=== PATIENT | male | born 1965 | race Caucasian/White ===

== ENCOUNTER 2020-12-19 13:42 | Inpatient (IN) | payer BC ==
[~2020-12-19] VITALS: Ht 177.8 cm; Wt 82.6 kg
[2020-12-19 14:51] VITALS: BP 146/85
[2020-12-19 15:56] LABS: HEMATOCRIT 27.7 % (42.0-52.0); HEMOGLOBIN 9.2 gm/dL (14.0-18.0); MCH 28.5 pg (26.0-34.0); MCHC 33.4 g/dL (28.0-37.0); MCV 85.4 fL (80.0-100.0); RBC 3.25 mil/uL (4.50-6.00); WBC 7.8 thou/uL (4.0-11.0)
[2020-12-19 16:04] LABS: CALCIUM 9.3 mg/dL (8.5-10.1); CREATININE 1.6 mg/dL (0.7-1.3); POTASSIUM 3.7 mmol/L (3.5-5.1)
[2020-12-19 16:08] LABS: INR 4.2; PROTIME 43.5 Seconds (9.3-11.4)
[2020-12-19 16:59] LABS: % SATURATION 14 % (20-39); IRON 32 ug/dL (65-175); TIBC 221 ug/dL (250-450)
[2020-12-19] MEDS ORDERED: TYLENOL325 M1 PO (17:01)
[2020-12-19] MEDS ORDERED: LIPITOR40 MG PO (17:02)
[2020-12-19] MEDS ORDERED: MINTOX MAXIMUM355 ML PO (17:02)
[2020-12-19] MEDS ORDERED: CALCIUM500 MG PO (17:03)
[2020-12-19] MEDS ORDERED: DIGOX125 MCG PO (17:03)
[2020-12-19] MEDS ORDERED: FAMOTIDINE 20 M20 MG PO (17:04)
[2020-12-19] MEDS ORDERED: CARDIZEM SR 60M60 MG PO (17:04)
[2020-12-19] MEDS ORDERED: NEURONTIN 300M300 M2 PO (17:05)
[2020-12-19] MEDS ORDERED: FLORINEF ACETA0.1 MG PO (17:05)
[2020-12-19] MEDS ORDERED: FUROSEMIDE 40 M40 MG PO (17:05)
[2020-12-19] MEDS ORDERED: MAGNESIUM250 M1 PO (17:07)
[2020-12-19] MEDS ORDERED: HYDROXYZINE HCL25 M2 PO (17:07)
[2020-12-19] MEDS ORDERED: MECLIZINE HCL25 M1 PO (17:08)
[2020-12-19] MEDS ORDERED: MENTHOL-CAMPHO120 GM TOP (17:09)
[2020-12-19] MEDS ORDERED: MIDODRINE HCL 55 M1 PO (17:09)
[2020-12-19] MEDS ORDERED: POLYOX WSR-3011 GM MC (17:10)
[2020-12-19] MEDS ORDERED: SENNA-DOCUSATE1 EAC1 PO (17:10)
[2020-12-19] MEDS ORDERED: SERTRALINE HCL100 MG PO (17:11)
[2020-12-19] MEDS ORDERED: EUCERIN CREME57 GM TOP (17:11)
[2020-12-19] MEDS ORDERED: JANTOVEN5 MG PO (17:12)
--- NOTE | 2020-12-19 17:19 | NUR ---
ASSUMED PT CARE AT APPROXIMATELY 1530 FROM A DIRECT ADMIT, PTS VSS, PT DENIES PAIN AT THIS TIME. ASSESSMENT AND ADMISSION COMPLETED. WILL CONTINUE TO MONITOR PT
[2020-12-19 20:12] VITALS: BP 127/88
[2020-12-20 00:57] VITALS: BP 127/89
[2020-12-20 04:15] VITALS: BP 129/94
[2020-12-20 04:47] LABS: HEMOGLOBIN 7.9 gm/dL (14.0-18.0); MCH 28.2 pg (26.0-34.0); MCV 85.5 fL (80.0-100.0); RBC 2.8 mil/uL (4.50-6.00); RDW 15.1 % (10.5-14.5)
[2020-12-20 05:05] LABS: INR 1.9; PROTIME 19.4 Seconds (9.3-11.4)
--- NOTE | 2020-12-20 05:26 | NUR ---
assumed pt care at 1900, pt is awake, alert and orientedx4, sr on the monitor, asessments as charted, denies pain or sob, remains on 4l nasal canula, o2sats stable, other vss, no acute distress noted, will continue to monitor and passon report
--- NOTE | 2020-12-20 07:12 | NUR ---
ASSUMED PT CARE AT THIS TIME. PT SLEEPING. ASSESSMENT PERFORMED. WILL CONTINUE TO MONITOR.
[2020-12-20 07:50] VITALS: BP 131/96
[2020-12-20 08:10] LABS: CREATININE 1.6 mg/dL (0.7-1.3); POTASSIUM 3.7 mmol/L (3.5-5.1)
--- NOTE | 2020-12-20 09:42 | EKG ---
[place] [address] [employer] [address] [facility] [place] [address] ELECTROCARDIOGRAM REPORT Name: RACHAEL BELL Room #: 214-P ADM IN M.R.#: [id number] Admission: 12/19/20 Attend Phys: Chris Perkins MD, Discharge: Date of : 65 Report #: [id number] 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 : 1965 Requested By: Gertrudis Dixon Order Number: [id number] MD: Miguel Angel Osborn Measurements Intervals [place] Rate: 72 P: 20 IN: 191 QRS: 36 QRSD: 89 T: 18 QT: 426 QTc: 467 Interpretive Statements Sinus rhythm Probable left atrial enlargement Abnormal R-wave progression, late transition Borderline T abnormalities, anterior leads Baseline wander in lead(s) V1 No previous ECG available for comparison Electronically Signed On 12-20-2020 9:42:13 SOFTWARE QUALITY ASSURANCE ENGINEER by Miguel Angel Osborn [email or web address] <ELECTRONICALLY SIGNED> By: Miguel Angel Osborn MD, [facility] 12/20/20 0942 6 6 Miguel Angel Osborn MD, [facility] /EPI
--- NOTE | 2020-12-20 10:24 | NUR ---
WOUND CONSULT; THE PATIENT REPORTS A 3 MONTH PERIOD OF HOSPITALIZATIONS. HE INCURRED A COCCYX PRESSURE WOUND AND IT IS ALMOST HEALED ALTHOUGH THE AREA HAS RAISED AREAS OF HYPER-COLLAGEN SKIN CHANGES TO THE AREA THAT MAY BE PERMINENT TO AN EXTENT. NO S/S OF INFECTION. THE PATIENT CAN TURN HIMSELF WITHOUT ASSISTANCE. THE PATIENT IS A GOOD HISTORIAN. RECOMMEDNATIONS; ZGUARD BID/PRN LOW AIR LOSS PUMP APPLIED TO THE BED TODAY. DISCUSSED WITH DIAZ
--- NOTE | 2020-12-20 11:03 | NUR ---
Case opened to follow for dc planning. Pt admitted from [facility] via Cardiology office where he had been sent for an ECHO. The pt has been rehabing at [facility] for approx one month. He had covid in August 2020 with lengthy hospital course including a stroke. He went to [facility] in [place], [place] for vent weaning/trach/peg and progressed to acute rehab. He has not needed to use his peg for the past month. He is now on 4liters of O2 per ks. He is working with therapy and his goal is to return home with his . [facility] updated and they are anticipating they can readmit when medically stable. Pt to have OSCAR today and cardiac cath tomorrow. GI consult is also in progress due to anemia. PT/OT evals are pending. DC internet media planner to fax clinical updated to [facility]. Dc plan is to go back to [facility] for continued rehab.
--- NOTE | 2020-12-20 11:10 | NUR ---
PT CAME FROM [facility] FAXED CLINICAL UPDATE RECEIVED CONFIRMATION AND SPOKE WITH CHANO IN ADM WILL KEEP FACILITY UPDATED.
[2020-12-20 12:00] VITALS: BP 121/78
[2020-12-20 15:40] VITALS: BP 124/87
[2020-12-20 20:14] VITALS: BP 142/81
[2020-12-21] VITALS (12 sets, daily range): BP systolic 110–1136; BP diastolic 71–97
[2020-12-21 04:00] LABS: PROTIME 12.9 Seconds (9.3-11.4)
[2020-12-21 04:03] LABS: CALCIUM 8.8 mg/dL (8.5-10.1); CREATININE 1.4 mg/dL (0.7-1.3); POTASSIUM 3.5 mmol/L (3.5-5.1)
[2020-12-21 04:07] LABS: INR 1.2
[2020-12-21 04:11] LABS: HEMATOCRIT 23.6 % (42.0-52.0); HEMOGLOBIN 7.8 gm/dL (14.0-18.0); MCH 28.1 pg (26.0-34.0); MCHC 32.9 g/dL (28.0-37.0); MCV 85.4 fL (80.0-100.0); RBC 2.77 mil/uL (4.50-6.00); WBC 6.9 thou/uL (4.0-11.0)
--- NOTE | 2020-12-21 07:55 | NUR ---
assumed care at 1900, alert and oriented, sr on the monitor, asessments as charted, pain and tingling to the left lower extremity, neurontin given, pt sleeping this am, remained npo after midnight for possible cath this am, no distress noted, passed on report
--- NOTE | 2020-12-21 14:05 | NUR ---
Pt still desating with activity. Awaiting r&d lab technician this afternoon. Dc plan discussed with the care team and pt/. All parties anticipating dc back to [facility] on Thursday. They are working on ins auth. They will need weekend therapy notes faxed early Thursday.
[2020-12-22] VITALS (8 sets, daily range): BP systolic 116–149; BP diastolic 77–90
[2020-12-22 04:37] LABS: HEMATOCRIT 22.6 % (42.0-52.0); HEMOGLOBIN 7.5 gm/dL (14.0-18.0); MCH 28.8 pg (26.0-34.0); MCHC 33.3 g/dL (28.0-37.0); MCV 86.4 fL (80.0-100.0); RBC 2.62 mil/uL (4.50-6.00); RDW 14.9 % (10.5-14.5)
[2020-12-22 04:55] LABS: CALCIUM 8.6 mg/dL (8.5-10.1); CREATININE 1.5 mg/dL (0.7-1.3); POTASSIUM 3.4 mmol/L (3.5-5.1); TOTAL BILIRUBIN 0.3 mg/dL (0.2-1.0); TOTAL PROTEIN 5.9 g/dL (6.4-8.2)
--- NOTE | 2020-12-22 11:10 | CATHLAB ---
[place] [address] INVASIVE PROCEDURE REPORT Name: RACHAEL BELL Linda Room #: 214-P ADM IN M.R.#: [id number] Admission: 12/19/20 Attend Phys: Chris Perkins MD, Discharge: Date of : 65 Report #: [id number] THIS REPORT FOR: cc: Edwin Peñaloza MD, John M. MD Mancuso, Gerald M. MD [facility] ~ APPROVED REPORT Study performed: 12/21/2020 14:31:12 Patient Details Patient Status: In-Patient Room #: The patient is a 55 year-old male Event Personnel Chris Perkins Care Aide, Sonya Linder RTR Monitor, Dejon Jones RTR ScrubDeedee Ashley RN corporate counselor Performed Art Access - R femoral artery* Steven Access - R femoral vein Right and Left Heart Cath w/or w/o Coronarie [id number] [facility] Hemostasis w/ Mynx 79422 Initial Mod Sed Same Phys/QHP Gr5y [id number] 35889 Mod Sed Same Phys/QHP Ea [id number] Procedure Narrative The Right Groin^ was infiltrated with 1% Lidocaine subcutaneous anesthesia. A Right Heart Catheterization was performed with a 7 Fr. [place]varo catheter and pressure were recorded. A PINNACLE 6FR TIF Sheath #[id number] sheath was inserted into the RFA^. Coronary angiography was performed using coronary diagnostic catheters. The right coronary system was accessed and visualized with a JR4 catheter. The left coronary system was accessed and visualized with a JL4 catheter. The left ventricle was accessed and visualized with a PIGTAIL catheter. Closure device was deployed with a Fr MYNXGRIP 6/7F #[id number]. The patient tolerated the procedure well and there were no complications associated with the procedure. There was no hematoma. Intraoperative Conscious Sedation Sedation start time: 15:54 Case end Time: 16:27 Fentanyl 100 mcg Versed 2 [place] [address] INVASIVE PROCEDURE REPORT Name: RACHAEL BELL Room #: 214-P [facility] IN ..#: [id number] Admission: 12/19/20 Attend Phys: Chris Perkins, Discharge: Date of : 65 Report #: [id number] Fluoro Time: 629.00 minutes Dose: DAP 5007.90 cGycm2 629 mGy Contrast Type and Amount: Visipaque 70 ml Hemodynamics The right atrial mean pressure is 9 mmHg. The right ventricular pressure is 39/3 mmHg. The pulmonary artery pressure is 35/14 mmHg with a mean of 22 mmHg. The mean pulmonary capillary wedge pressure is 14 mmHg. The aortic pressure is 142/78 mmHg with a mean of 103 mmHg. The left ventricular pressure is 136/8 mmHg with a mean of mmHg. The left ventricular end diastolic pressure is 28 mmHg. The cardiac output using thermo method is 6.95 L/min. The cardiac index using thermo method is 3.43 L/min/m2. Conclusion #1. Successful right heart catheterization with cardiac output by thermodilution. See above hemodynamics. #2 normal left jugular size and systolic function EF 55 to 60%. No wall motion abnormality. #3 left main large giving rise to LAD and circumflex widely patent. #4 LAD with mild disease extends to the apex a type I LAD. #5 a small ramus intermedius has mild disease. #6 a large but nondominant circumflex system is intact with mild irregularity #7 dominant right coronary artery mildly diseased giving rise to a PDA which extends to the inferior apex. Recommendations and plan: Continue aggressive risk factor modification. Gentle diuresis. No indication for coronary intervention. There is a component of diastolic heart failure noted on noninvasive imaging. <ELECTRONICALLY SIGNED> By: Chris Perkins MD, FACC 12/22/20 1109 08 08 Chris Perkins MD, FACC /INF
[2020-12-23 03:42] LABS: CREATININE 1.3 mg/dL (0.7-1.3); POTASSIUM 3.4 mmol/L (3.5-5.1)
[2020-12-23 04:08] VITALS: BP 140/84
--- NOTE | 2020-12-23 05:26 | NUR ---
ASSESSMENTS CHARTED, MEDS CHARTED GIVEN. PATIENT STATING HIS GABAPENTIN IS NOT LASTING 6 HOURS SO ENDS UP IN PAIN FOR AT LEAST AN HOUR. REQUESTING THAT THE DOSE BE INCREASED OR SPREAD OUT TO COVER THE ENTIRE TIME. IN SINUS RHYTHM, ON 4 LITERS OXYGEN. USING URINAL. ABDOMENAL SITE WHERE PEG TUB WAS REMOVED WAS REINFORCED. COCCYX WAS ADDRESSED WITH ZGARD AND PATIENT REMINDED TO ALTERNATE WEIGHT ON EACH SIDE.
[2020-12-23 07:50] VITALS: BP 137/85
[2020-12-23 10:09] LABS: HEMATOCRIT 23.7 % (42.0-52.0); HEMOGLOBIN 7.7 gm/dL (14.0-18.0); MCH 28.1 pg (26.0-34.0); MCHC 32.5 g/dL (28.0-37.0); MCV 86.6 fL (80.0-100.0); RBC 2.73 mil/uL (4.50-6.00); WBC 6.7 thou/uL (4.0-11.0)
[2020-12-23 11:30] VITALS: BP 131/86
--- NOTE | 2020-12-23 11:45 | NUR ---
report received from DIAZ Yousif. care assumed.
[2020-12-23 15:55] VITALS: BP 140/83
[2020-12-23 19:53] VITALS: BP 136/97
[2020-12-24 03:31] LABS: CALCIUM 8.9 mg/dL (8.5-10.1); CREATININE 1.4 mg/dL (0.7-1.3); POTASSIUM 3.2 mmol/L (3.5-5.1)
[2020-12-24 04:39] VITALS: BP 137/85
--- NOTE | 2020-12-24 07:37 | NUR ---
ASSESSMENTS CHARTED, MEDS CHARTED GIVEN. PATIENT IS DOING BETTER ON INCREASED DOSE OF GABAPENTIN. PATIENT NEGATIVE FOR COVID. PLAN IS FOR PATIENT TO RETURN TO [facility] TODAY TO CONTINUE REHAB. FALL PRECAUTIONS IN PLACE DURING SHIFT.
[2020-12-24 07:55] VITALS: BP 130/82
[2020-12-24] MEDS ORDERED: POTASSIUM20 PO (08:39)
[2020-12-24] MEDS ORDERED: TORSEMIDE10 MG PO (08:39)
[2020-12-24] MEDS ORDERED: NEURONTIN 400M400 M2 PO (08:39)
--- NOTE | 2020-12-24 09:36 | NUR ---
FAXED [facility] ([facility]) PATIENT'S THERAPY EVALUATIONS AND NEGATIVE COVID RESULT. SUBMITTED REQUESTING INSURANCE AUTHORIZATION. WILL CONFIRM THEY RECEIVED AND INFORM PATIENT READY FOR DISCHARGE. [facility] P [phone]; FAX [phone]
--- NOTE | 2020-12-24 11:17 | NUR ---
WOUND CARE F/U; GETTING OUT OF BED TO CHAIR W/ ASSIST OF OT, ALERT, COOPERATIVE, SMALL OPEN AREA STAGE 2 COCCYX, PT C/O SOME DISCOMFORT IN AREA, ZGUARD APPLIED,NO S/S INFECTION, LOW AIR LOSS PUMP REMAINS ON BED RECOMMENDATIONS; CONT CURRENT POC OF ZGUARD BID AND PRN, TURN/OFF LOADING WHEN IN BED, CONT LOW AIR LOSS PUMP TO BED SOLAR INSTALLER AWARE
[2020-12-24 11:50] VITALS: BP 118/88
--- NOTE | 2020-12-24 13:54 | NUR ---
K IS 3.2 THIS AM. CARDIOLOGY AWARE AND INCREASED HIS DOSE TODAY FROM 20 MEQ TO 40 MEQ PO.
--- NOTE | 2020-12-24 14:21 | NUR ---
Spoke with therapy who reports patient would benefit from continued therapy. DC vacation planner faxed clinical information, requested auth. FREDDY reports they have submitted for auth. Updated patient and .
[2020-12-24 17:05] VITALS: BP 133/79
--- NOTE | 2020-12-24 17:38 | NUR ---
FAXED DISCHARGE ORDERS, SUMMARY AND NEGATIVE COVID RESULTS TO [facility] ([facility] P [phone]; FAX [phone]
--- NOTE | 2020-12-24 18:32 | NUR ---
PT WAS SUPPOSE TO DISCHARGE TO [facility] TODAY PENDING IF INSURANCE AUTH WAS APPROVED. CASE MANAGEMENT NOTIFIED RN AT 1700 THAT AUTH WAS STILL PENDING AND SO PT WOULD NOT BE D/C HOME TODAY. CARDIOLOGY GIS APPLICATION DEVELOPER CALLED AND RN TOLD HER. GIS APPLICATION DEVELOPER STATES SHE WILL ROUND ON PT IN AM. PT NOTIFIED BY GROUP SALES MANAGER AND RN THAT HE WOULD NOT BE D/C'ING TODAY.
[2020-12-24 20:16] VITALS: BP 148/91
--- NOTE | 2020-12-25 05:04 | NUR ---
ASSESSMENTS CHARTED, MEDS CHARTED GIVEN. PATIENT WAS DOWNGRADED TO MS AT START OF SHIFT. HE WAS TAKEN OFF TELEMETRY, BUT STAYED IN HIS CURRENT ROOM. DENIED PAIN. PLAN HAD BEEN FOR HIM TO TRANSFER TO [facility] YESTERDAY, BUT INSURANCE DID NOT COME THROUGH. PATIENT WILL TRY AGAIN TODAY TO GO, IF NOT HE WILL GO HOME WITH HOME HEALTH. FALL PRECAUTIONS IN PLACE DURING SHIFT.
[2020-12-25 05:13] VITALS: BP 126/90
[2020-12-25 07:45] VITALS: BP 128/92
[2020-12-25 08:01] LABS: ALBUMIN 3.3 g/dL (3.4-5.0); CALCIUM 8.7 mg/dL (8.5-10.1); CREATININE 1.4 mg/dL (0.7-1.3); POTASSIUM 3.6 mmol/L (3.5-5.1); TOTAL BILIRUBIN 0.3 mg/dL (0.2-1.0); TOTAL PROTEIN 5.8 g/dL (6.4-8.2)
[2020-12-25 09:07] LABS: HEMATOCRIT 24.7 % (42.0-52.0); HEMOGLOBIN 8.3 gm/dL (14.0-18.0); MCH 28.7 pg (26.0-34.0); MCHC 33.5 g/dL (28.0-37.0); MCV 85.9 fL (80.0-100.0); RBC 2.88 mil/uL (4.50-6.00); RDW 14.9 % (10.5-14.5); WBC 6.1 thou/uL (4.0-11.0)
--- NOTE | 2020-12-25 09:19 | NUR ---
ASSUMED PT CARE AT 0700. PTS ASSESSMENT PERFORMED AT THAT TIME. PT DENIES PAIN AT THIS TIME. VSS. WILL CONTINUE TO MONITOR. PTS PLAN IS TO GO HOME OR BACK TO [facility] TODAY.
[2020-12-25] MEDS ORDERED: XARELTO20 MG PO (10:56)
[2020-12-25] MEDS ORDERED: ZOLOFT 50 MG TA50 M1 PO (10:56)
[2020-12-25] MEDS ORDERED: FLORINEF ACETA0.1 MG PO (10:56)
[2020-12-25] MEDS ORDERED: LIPITOR40 MG PO (10:56)
[2020-12-25] MEDS ORDERED: DIGOXIN125 MCG PO (10:56)
[2020-12-25] MEDS ORDERED: CALTRATE-600 W1 EACH PO (10:56)
[2020-12-25] MEDS ORDERED: DILTIAZEM 24HR180 M1 PO (10:56)
[2020-12-25] MEDS ORDERED: MIDODRINE HCL 55 M1 PO (10:56)
[2020-12-25] MEDS ORDERED: DEMADEX20 MG PO (10:57)
[2020-12-25] MEDS ORDERED: POTASSIUM20 PO (10:57)
[2020-12-25 13:00] VITALS: BP 128/92
--- NOTE | 2020-12-25 13:07 | NUR ---
this am called [facility] who reports they are still awaiting auth. Sp with patient and at bedside who reports they prefer to return home and not wait for auth. Patient and report patient has not been home for months and wish to return home. Oxygen arranged via [facility]. [facility] home care is home health agency that rec referral from [facility] for HH. GONZALO program planner faxed referral they rec confirmation for start of care. no further needs.
[2020-12-25 13:12] VITALS: BP 128/92
== END 2020-12-25 14:59 | disposition home or self-care (01) | DRG 286 ==
LOC: 2N 13:42
PROVIDERS: Nurse Practitioner Adult Health; ADMIT Internal Medicine Cardiovascular Disease; ATTEND Internal Medicine Cardiovascular Disease
PROC: B215YZZ Fluoroscopy of Left Heart using Other Contrast (ICD-10-PCS; principal; 2020-12-21)
PROC: 4A023N8 Measurement of Cardiac Sampling and Pressure, Bilateral, Percutaneous Approach (ICD-10-PCS; principal; 2020-12-21)
PROC: 0JPT3XZ Removal of Tunneled Vascular Access Device from Trunk Subcutaneous Tissue and Fascia, Percutaneous Approach (ICD-10-PCS; principal; 2020-12-21)
PROC: 02PAX3Z Removal of Infusion Device from Heart, External Approach (ICD-10-PCS; principal; 2020-12-21)
PROC: B211YZZ Fluoroscopy of Multiple Coronary Arteries using Other Contrast (ICD-10-PCS; principal; 2020-12-21)
DX: I13.0 Hypertensive heart and chronic kidney disease with heart failure and stage 1 through stage 4 chronic kidney disease, or unspecified chronic kidney disease (principal); J96.20 Acute and chronic respiratory failure, unspecified whether with hypoxia or hypercapnia; U07.1 COVID-19; N17.9 Acute kidney failure, unspecified; I48.92 Unspecified atrial flutter; I50.9 Heart failure, unspecified; E78.5 Hyperlipidemia, unspecified; I95.9 Hypotension, unspecified; N18.9 Chronic kidney disease, unspecified; I48.91 Unspecified atrial fibrillation; D64.9 Anemia, unspecified; R13.10 Dysphagia, unspecified; G62.9 Polyneuropathy, unspecified; R53.81 Other malaise; Z79.899 Other long term (current) drug therapy
CPT/HCPCS: 10081; 10797

== ENCOUNTER → 2020-12-19 | Outpatient (CLI) | payer BC ==
[~2020-12-19] MED LIST: CALCIUM500 MG PO; CARDIZEM SR 60M60 MG PO; DIGOX125 MCG PO; EUCERIN CREME57 GM TOP; FAMOTIDINE 20 M20 MG PO; FLORINEF ACETA0.1 MG PO; FUROSEMIDE 40 M40 MG PO; HYDROXYZINE HCL25 M2 PO; JANTOVEN5 MG PO; LIPITOR40 MG PO; MAGNESIUM250 M1 PO; MECLIZINE HCL25 M1 PO; MENTHOL-CAMPHO120 GM TOP; MIDODRINE HCL 55 M1 PO; MINTOX MAXIMUM355 ML PO; NEURONTIN 300M300 M2 PO; POLYOX WSR-3011 GM MC; SENNA-DOCUSATE1 EAC1 PO; SERTRALINE HCL100 MG PO; TYLENOL325 M1 PO
== END ==
LOC: SJCVCIMAG 12:32
PROVIDERS: ATTEND Internal Medicine Cardiovascular Disease
DX: I05.9 Rheumatic mitral valve disease, unspecified (principal); I48.91 Unspecified atrial fibrillation; I10 Essential (primary) hypertension; E78.5 Hyperlipidemia, unspecified; Z86.16 Personal history of COVID-19; Z86.711 Personal history of pulmonary embolism

== ENCOUNTER → 2021-10-09 | Outpatient (CLI) | payer BC ==
[~2021-10-09] MED LIST changes: +CALTRATE-600 W1 EACH PO; +DEMADEX20 MG PO; +DIGOXIN125 MCG PO; +DILTIAZEM 24HR180 M1 PO; +NEURONTIN 400M400 M2 PO; +POTASSIUM20 PO; +TORSEMIDE10 MG PO; +XARELTO20 MG PO; +ZOLOFT 50 MG TA50 M1 PO
== END ==
LOC: SJCVCIMAG 09:56
PROVIDERS: ATTEND Internal Medicine Cardiovascular Disease
DX: I07.1 Rheumatic tricuspid insufficiency (principal); I48.91 Unspecified atrial fibrillation; I10 Essential (primary) hypertension; E78.5 Hyperlipidemia, unspecified; Z86.16 Personal history of COVID-19; Z88.8 Allergy status to other drugs, medicaments and biological substances; Z79.82 Long term (current) use of aspirin; Z79.899 Other long term (current) drug therapy